=== PATIENT | female | born 1945 | race Caucasian/White ===

== ENCOUNTER 2017-03-05 09:53 | Emergency (ER) | payer BC ==
[~2017-03-05] VITALS: Ht 165.1 cm; Wt 72.6 kg
[2017-03-05] MEDS ORDERED: ACETAMINOPHEN ES 500 MG TABLET PO ONE (10:15)
[2017-03-05] MEDS ORDERED: ONDANSETRON ODT 4 MG TAB.RAPDIS SL ONE (10:15)
[2017-03-05] MEDS ORDERED: PHENAZOPYRIDINE HCL 100 MG TABLET PO ONE (10:15)
[2017-03-05] MEDS ORDERED: PHENAZOPYRIDINE HCL 100 MG TABLET ONE (10:37)
[2017-03-05] MEDS ORDERED: ACETAMINOPHEN ES 500 MG TABLET ONE (10:37)
[2017-03-05] MEDS ORDERED: ONDANSETRON ODT 4 MG TAB.RAPDIS ONE (10:37)
[2017-03-05 11:04] LABS: *BILIRUBIN,URIN NEGATIVE (NEGATIVE); *BLOOD, URINE 3+ (NEGATIVE); *CLARITY,URINE SLIGHTLY CLOUDY (CLEAR); *COLOR,URINE YELLOW (YELLOW); *KETONES,URINE NEGATIVE (NEGATIVE); *UROBILINOGEN,URINE 0.2 E.U./dl (NORMAL); LEUKOCYTE ESTERASE ,URINE 1+ (NEGATIVE); NITRITE, URINE NEGATIVE (NEGATIVE); PH,URINE 5.5 (5.0-8.0); UGLUCOSE NEGATIVE (NEGATIVE)
[2017-03-05 11:11] LABS: *PROTEIN,URINE NEGATIVE (NEGATIVE)
[2017-03-05 11:19] LABS: RBC,URINE 80-100 /HPF (0-3)
[2017-03-05 11:20] LABS: BACTERIA,URINE MODERATE /HPF (NONE SEEN); SQUAMOUS EPITHELIAL CELL,UR FEW /HPF (NONE SEEN); URIC ACID CRYSTALS,URINE MODERATE /HPF (NONE SEEN)
[2017-03-05] MEDS ORDERED: IV NORMAL SALINE 1000 ML BAG IV ONE (11:30)
[2017-03-05] MEDS ORDERED: TAMSULOSIN HCL 0.4 MG CAP.SR.24H PO ONE (11:30)
[2017-03-05 11:48] LABS: BASOPHILS % (AUTO) 0.2 % (0.0-2.0); EOSINOPHILS % (AUTO) 0.2 % (0.0-7.0); HEMATOCRIT 42.9 % (31.2-41.9); HEMOGLOBIN 14.5 g/dL (10.9-14.3); LYMPHOCYTES # (AUTO) 0.6 K/uL (20.0-40.0); LYMPHOCYTES % (AUTO) 6.6 % (20.5-51.5); MEAN CORPUSCULAR HEMOGLOBIN 30.7 uug (24.7-32.8); MEAN CORPUSCULAR HGB CONC 34 g/dL (32.3-35.6); MEAN CORPUSCULAR VOLUME 90.4 fL (75.5-95.3); MONOCYTES # (AUTO) 0.1 K/uL (2.0-10.0); MONOCYTES % (AUTO) 1.1 % (0.0-11.0); NEUTROPHILS # (AUTO) 8.1 K/uL (1.8-8.9); NEUTROPHILS % (AUTO) 91.9 % (38.5-71.5); PLATELET COUNT (AUTO) 169 K/uL (179-408); RED BLOOD CELL COUNT(AUTO) 4.74 MIL/uL (3.63-4.92); WHITE BLOOD COUNT (AUTO) 8.8 K/uL (3.8-11.8)
[2017-03-05] MEDS ORDERED: TAMSULOSIN HCL 0.4 MG CAP.SR.24H ONE (11:51)
[2017-03-05 11:55] LABS: CREATININE 1.1 mg/dL (0.6-1.3); POTASSIUM 4.2 mmol/L (3.5-5.1)
[2017-03-05 12:01] LABS: BILIRUBIN,DIRECT 0.1 mg/dL (0.0-0.2); BILIRUBIN,TOTAL 0.5 mg/dL (0.2-1.0); TOTAL PROTEIN, SERUM 7.3 g/dL (6.4-8.2)
--- NOTE | 2017-03-05 12:30 | NUR ---
PATIENT C/O FLANK PAIN. URINE SENT TO LAB. TYLENOL AND PYRIDIUM DID NOT HELP HER PAIN. DR HASKINS NOTIFIED.
[2017-03-05] MEDS ORDERED: ONDANSETRON 4 MG/2 ML VIAL IV ONE (12:45)
[2017-03-05] MEDS ORDERED: MORPHINE SULFATE 2 MG/1 ML DISP.SYRIN IV ONE (12:45)
[2017-03-05] MEDS ORDERED: ONDANSETRON 4 MG/2 ML VIAL ONE (12:54)
[2017-03-05] MEDS ORDERED: MORPHINE SULFATE 2 MG/1 ML DISP.SYRIN ONE (12:54)
--- NOTE | 2017-03-05 13:02 | NUR ---
PATIENT STATES PAIN HAS DIMINISHED. SP02 >95% ON RA. PATIENT AMBULATED TO BATHROOM IN STEADY GAIT.
--- NOTE | 2017-03-05 14:37 | NUR ---
PATIENT STATES PAIN IS STILL LOW FOR NOW. IV DC'D, PRESSURE APPLIED, DRESSING APPLIED. DC, RX AND FOLLOW UP INSTRUCTIONS INCLUDING PERCOCET GIVEN AND EXPLAINED TO PATIENT WHO STATES SHE UNDERSTANDS ALL INSTRUCTIONS.
[2017-03-05 14:39] VITALS: BP 127/70
== END 2017-03-05 14:40 | disposition home or self-care (01) ==
LOC: ER 09:57
DX: N23 Unspecified renal colic (principal); F41.9 Anxiety disorder, unspecified; Z87.442 Personal history of urinary calculi
CPT/HCPCS: 36415; 76770; 85025; A4663; J2270; J2405; J7030; Q0162

== ENCOUNTER 2018-09-30 17:52 | Emergency (ER) | payer BC, MEDICARE ==
[~2018-09-30] VITALS: Ht 165.1 cm; Wt 74.8 kg
[2018-09-30 18:34] LABS: *BILIRUBIN,URIN NEGATIVE (NEGATIVE); *BLOOD, URINE 2+ (NEGATIVE); *CLARITY,URINE SLIGHTLY CLOUDY (CLEAR); *COLOR,URINE YELLOW (YELLOW); *KETONES,URINE TRACE (NEGATIVE); *UROBILINOGEN,URINE 0.2 E.U./dl (NORMAL); LEUKOCYTE ESTERASE ,URINE 1+ (NEGATIVE); NITRITE, URINE NEGATIVE (NEGATIVE); PH,URINE 5.5 (5.0-8.0); UGLUCOSE NEGATIVE (NEGATIVE)
[2018-09-30 18:44] LABS: SQUAMOUS EPITHELIAL CELL,UR FEW /HPF (NONE SEEN); URIC ACID CRYSTALS,URINE MODERATE /HPF (NONE SEEN)
--- NOTE | 2018-09-30 18:44 | NUR ---
TEE MARTINEZ AT BEDSIDE FOR MSE.
[2018-09-30 18:45] LABS: MUCUS,URINE MODERATE /LPF (0-FEW); URINE AMORPHOUS URATE MODERATE /HPF
[2018-09-30] MEDS ORDERED: CEFTRIAXONE 1 G VIAL ONE (18:59)
[2018-09-30] MEDS ORDERED: IV NORMAL SALINE 1000 ML BAG IV ONE (19:00)
[2018-09-30] MEDS ORDERED: CEFTRIAXONE 2 G in IV DEXTROSE 5% 100 ML IV ONE (19:00)
--- NOTE | 2018-09-30 19:06 | NUR ---
SHIFT REPORT GIVEN TO BREANNE Champion RN.
--- NOTE | 2018-09-30 19:10 | NUR ---
Pt out of ER for CT.
[2018-09-30 19:11] LABS: BASOPHILS # (AUTO) 0.1 K/uL (0.0-8.0); BASOPHILS % (AUTO) 0.5 % (0.0-2.0); EOSINOPHILS % (AUTO) 0.1 % (0.0-7.0); HEMATOCRIT 43.5 % (31.2-41.9); HEMOGLOBIN 14.4 g/dL (10.9-14.3); LYMPHOCYTES # (AUTO) 0.5 K/uL (20.0-40.0); LYMPHOCYTES % (AUTO) 4.4 % (20.5-51.5); MEAN CORPUSCULAR HEMOGLOBIN 29.7 uug (24.7-32.8); MEAN CORPUSCULAR HGB CONC 33 g/dL (32.3-35.6); MEAN CORPUSCULAR VOLUME 89.6 fL (75.5-95.3); MONOCYTES # (AUTO) 1.1 K/uL (2.0-10.0); MONOCYTES % (AUTO) 8.9 % (0.0-11.0); NEUTROPHILS # (AUTO) 10.5 K/uL (1.8-8.9); NEUTROPHILS % (AUTO) 86.1 % (38.5-71.5); PLATELET COUNT (AUTO) 177 K/uL (179-408); RED BLOOD CELL COUNT(AUTO) 4.86 MIL/uL (3.63-4.92); WHITE BLOOD COUNT (AUTO) 12.3 K/uL (3.8-11.8)
[2018-09-30 19:16] LABS: CARBON DIOXIDE 26 mmol/L (21-32); CHLORIDE 102 mmol/L (98-107); CREATININE 1.1 mg/dL (0.6-1.3); GLUCOSE 122 mg/dL (74-106); POTASSIUM 3.8 mmol/L (3.5-5.1); UREA NITROGEN, BLOOD 15 mg/dL (7-18)
--- NOTE | 2018-09-30 19:21 | NUR ---
Pt back to ER from CT.
[2018-09-30 19:22] LABS: ALANINE AMINOTRANSFERASE 21 U/L (14-59); ALKALINE PHOSPHATASE 82 U/L (50-136); ASPARTATE AMINOTRANSFERASE 12 U/L (15-37); BILIRUBIN,TOTAL 0.5 mg/dL (0.2-1.0); TOTAL PROTEIN, SERUM 7.6 g/dL (6.4-8.2)
--- NOTE | 2018-09-30 20:10 | NUR ---
Kylah BARONE stop time 2020
--- NOTE | 2018-09-30 21:05 | NUR ---
Patient discharged to home in stable conditon. Written and verbal after care instructions given. Patient verbalizes understanding of instructions. Pt ambulated out of ER with steady gait, no acute signs of distress, VSS, all belongings taken, IV site discontinued.
[2018-09-30 21:07] VITALS: BP 140/84
== END 2018-09-30 21:08 | disposition home or self-care (01) ==
LOC: ER 17:52
DX: N12 Tubulo-interstitial nephritis, not specified as acute or chronic (principal); Z90.710 Acquired absence of both cervix and uterus; Z90.89 Acquired absence of other organs; Z88.1 Allergy status to other antibiotic agents
CPT/HCPCS: 36415; 74176; 80053; 81000; 81001; 85025; 87077; 87086; 87186; 96365; 99284; J0696; J7060; A4663; J7030